=== PATIENT | female | born 1950 | race Caucasian/White ===

== ENCOUNTER → 2016-05-10 | Outpatient (CLI) | payer MEDICARE, OTHER ==
[~2016-05-10] MED LIST: ALBUTEROL0.63 MG/3 INH; ALPRAZOLAM0.5 MG PO; ASPIR 8181 MG PO; FERROUS SULFAT325 M2 PO; IMDUR ER TAB 3030 MG PO; LORTAB 5-325 M1 EACH PO; MAGNESIUM100 MG PO; NEURONTIN 300300 MG PO; NORCO 10-325 T1 EACH PO; PERCOCET 10-321 EACH PO; PLAVIX 75 MG TA75 MG PO; PROTONIX40 MG PO; PROVENTIL HFA 61 INH INH; RANEXA500 MG PO; SINGULAIR10 MG PO; TOPROL XL 25 MG25 MG PO; ZOCOR 40 MG TAB40 MG PO; ZYRTEC10 M3 PO
== END ==
LOC: RAD 14:33
DX: M25.551 Pain in right hip (principal); M54.5 Low back pain
CPT/HCPCS: 72110; 73502

== ENCOUNTER 2016-07-16 16:06 | Emergency (ER) | payer MEDICARE, OTHER ==
[2016-07-16 17:16] LABS: HEMOGLOBIN 11.3 gm/dl (12.3-15.3); RED BLOOD COUNT 3.67 M/UL (4.00-5.10); WHITE BLOOD COUNT 9.7 K/UL (4.5-11.0)
== END 2016-07-17 03:35 ==
LOC: ER1 16:06
PROVIDERS: Emergency Medicine
DX: G40.409 Other generalized epilepsy and epileptic syndromes, not intractable, without status epilepticus (principal); I10 Essential (primary) hypertension; Z86.73 Personal history of transient ischemic attack (TIA), and cerebral infarction without residual deficits; Z79.02 Long term (current) use of antithrombotics/antiplatelets; Z79.899 Other long term (current) drug therapy
CPT/HCPCS: 36415; 70450; 71010; 80053; 82550; 82553; 82962; 83874; 84484; 85025; 96374; 96375; 99291; J1953; J2060

== ENCOUNTER 2020-12-22 21:18 | Inpatient (IN) | payer MEDICARE, OTHER ==
[~2020-12-22] VITALS: Ht 167.6 cm; Wt 81.2 kg
[~2020-12-22 21:18] MED LIST changes: +AMLODIPINE BESYL5 MG PO; +ASPIRIN CHEWABL81 MG PO; +CEFUROXIME500 MG PO; +CETIRIZINE HCL10 MG PO; +CLONAZEPAM0.25 MG PO; +CRESTOR20 MG PO; +GABAPENTIN600 MG PO; +HYDROCHLOROTH12.5 MG PO; +HYDROXYZINE PAM25 MG PO; +ISOSORBIDE MON120 MG PO; +KEFLEX CAP 500500 MG PO; +KEPPRA 250 MG250 MG PO; +KEPPRA 500 MG500 MG PO; +KEPPRA500 MG PO; +LEVETIRACETAM500 MG PO; +LEVOFLOXACIN500 MG PO; +LORTAB 7.5-3251 EACH PO; +LOSARTAN POTASS25 MG PO; +MACROBID 100 M100 MG PO; +MAG OXIDE PO; +MAGOX 400400 MG PO; +MAPAP325 MG PO; +MEDROL4 MG PO; +METOPROLOL SUCC25 MG PO; +MOBIC7.5 MG PO; +MONTELUKAST SOD10 MG PO; +NITROSTAT0.4 MG SL; +NORCO 5-325 TA1 EACH PO; +NORCO 7.5-3251 EACH PO; +ONDANSETRON ODT4 MG PO; +OXYBUTYNIN CHLO10 MG PO; +PANTOPRAZOLE SO40 MG PO; +PERCOCET 5-3251 EACH PO; +PROMETHAZINE HC25 M1 PO; +RANEXA1000 MG PO; +SILVADENE CREAM20 GM TOP; +VENTOLIN HFA 66.7 GM INH; +VENTOLIN/PROVE0.5 ML INH; +VITAMIN B-121000 MC3 PO; +[UNRECOGNIZED DRUG - OTHER] TOP; +[UNRECOGNIZED DRUG - OTHER] TP
[2020-12-22 22:08] LABS: HEMOGLOBIN 9.4 gm/dl (12.3-15.3); RED BLOOD COUNT 3.33 M/UL (4.00-5.10); WHITE BLOOD COUNT 4.5 K/UL (4.5-11.0)
[2020-12-22 22:44] LABS: BUN/CREATININE RATIO 10 (0-10)
[2020-12-23] MEDS ORDERED: ISOSORBIDE MON120 MG PO (01:22)
[2020-12-23] MEDS ORDERED: COZAAR 25MG TAB25 MG PO (01:22)
[2020-12-23] MEDS ORDERED: HYDROCHLOROTH12.5 M1 PO (01:23)
[2020-12-24 07:22] LABS: HEMOGLOBIN 9.2 gm/dl (12.3-15.3); RED BLOOD COUNT 3.23 M/UL (4.00-5.10); WHITE BLOOD COUNT 4.2 K/UL (4.5-11.0)
[2020-12-24 07:59] LABS: BUN/CREATININE RATIO 9 (0-10)
--- NOTE | 2020-12-24 16:40 | NUR ---
1415 Patient c/o not being able to void. Bladder scanned patient, 925ml of urine noted. Dr Chris informed, order obtained to insert longo catheter. #16 Fr inserted as ordered. Clear yelow urine return noted.
[2020-12-25 07:58] LABS: HEMOGLOBIN 8.1 gm/dl (12.3-15.3); WHITE BLOOD COUNT 3.8 K/UL (4.5-11.0)
[2020-12-25 08:17] LABS: BUN/CREATININE RATIO 12 (0-10)
[2020-12-26 06:22] LABS: HEMOGLOBIN 8.9 gm/dl (12.3-15.3); RED BLOOD COUNT 3.16 M/UL (4.00-5.10); WHITE BLOOD COUNT 3.5 K/UL (4.5-11.0)
[2020-12-26 06:56] LABS: BUN/CREATININE RATIO 9 (0-10)
[2020-12-27 06:42] LABS: BUN/CREATININE RATIO 16 (0-10)
[2020-12-27 09:00] LABS: HEMOGLOBIN 8.5 gm/dl (12.3-15.3); RED BLOOD COUNT 2.99 M/UL (4.00-5.10)
[2020-12-27 09:21] LABS: WHITE BLOOD COUNT 4.4 K/UL (4.5-11.0)
[2020-12-28 06:45] LABS: HEMOGLOBIN 8.3 gm/dl (12.3-15.3); RED BLOOD COUNT 2.97 M/UL (4.00-5.10); WHITE BLOOD COUNT 3.5 K/UL (4.5-11.0)
[2020-12-28 07:26] LABS: BUN/CREATININE RATIO 13 (0-10)
[2020-12-29 04:44] LABS: BUN/CREATININE RATIO 11 (0-10)
[2021-01-03 07:52] LABS: HEMOGLOBIN 7.6 gm/dl (12.3-15.3); RED BLOOD COUNT 2.81 M/UL (4.00-5.10); WHITE BLOOD COUNT 5.6 K/UL (4.5-11.0)
[2021-01-03 08:21] LABS: BUN/CREATININE RATIO 16 (0-10)
[2021-01-03] MEDS ORDERED: FERROUS GLUCON324 M2 PO (11:42)
[2021-01-03] MEDS ORDERED: THERAGRAN M TAB1 EA PO (11:42)
[2021-01-03] MEDS ORDERED: TYLENOL 8 HOUR650 MG PO (11:45)
[2021-01-03] MEDS ORDERED: GABAPENTIN300 MG PO (11:45)
[2021-01-03] MEDS ORDERED: CRESTOR 10 MG T10 MG PO (12:03)
[2021-01-03 12:06] LABS: HEMOGLOBIN 7.5 gm/dl (12.3-15.3)
--- NOTE | 2021-01-03 13:38 | NUR ---
1320: RN SPEAKS WITH CHRISTELLE BARNES, D/T PATIENT BEING UPSET OVER BEING TRANSPORTED BY [facility]. PATIENT TOLD TECH THAT SHE WOULD PURPOSELY FALL, SO THAT SHE WOULD BE BROUGHT BACK TO THE HOSPITAL, STRONGLY ENCOURAGED PATIENT NOT TO ALLOW THAT TO HAPPEN. CHRISTELLE, CHRISTELLE DIRECTOR AND OT NOW IN ROOM SPEAKING WITH PATIENT REGARDING TRANSPORT.
== END 2021-01-03 16:32 | disposition swing bed (61) | DRG 56 ==
LOC: ER1 21:18 → M/S 12-23 00:40 → CDU 12-23 00:40 → M/S 12-23 03:21
PROVIDERS: Emergency Medicine; Internal Medicine; Internal Medicine Infectious Disease; ADMIT Internal Medicine
DX: I69.351 Hemiplegia and hemiparesis following cerebral infarction affecting right dominant side (principal); E43 Unspecified severe protein-calorie malnutrition; Z20.822 Contact with and (suspected) exposure to COVID-19; R64 Cachexia; R62.7 Adult failure to thrive; R53.81 Other malaise; D50.9 Iron deficiency anemia, unspecified; L89.322 Pressure ulcer of left buttock, stage 2; L89.312 Pressure ulcer of right buttock, stage 2; R29.6 Repeated falls; W18.30XA Fall on same level, unspecified, initial encounter; I25.10 Atherosclerotic heart disease of native coronary artery without angina pectoris; I11.9 Hypertensive heart disease without heart failure; G40.909 Epilepsy, unspecified, not intractable, without status epilepticus; R33.9 Retention of urine, unspecified; K22.70 Barrett's esophagus without dysplasia; E78.5 Hyperlipidemia, unspecified; F32.A Depression, unspecified; E86.0 Dehydration; F17.210 Nicotine dependence, cigarettes, uncomplicated; N30.90 Cystitis, unspecified without hematuria; F41.9 Anxiety disorder, unspecified; Z87.11 Personal history of peptic ulcer disease; Z98.51 Tubal ligation status; Z90.49 Acquired absence of other specified parts of digestive tract; Z82.49 Family history of ischemic heart disease and other diseases of the circulatory system; Z80.1 Family history of malignant neoplasm of trachea, bronchus and lung; Z87.81 Personal history of (healed) traumatic fracture; Z68.27 Body mass index [BMI] 27.0-27.9, adult
CPT/HCPCS: 36415; 70450; 70551; 71045; 72125; 80048; 80053; 80061; 80202; 80307; 81001; 82140; 82550; 82553; 82607; 82728; 82746; 83036; 83540; 83550; 83735; 83874; 84100; 84439; 84443; 84484; 84550; 85014; 85018; 85025; 85652; 86140; 87040; 87077; 87086; 94640; 94664; 94760; 96365; 96366; 96367; 97110; 97110-GP-CQ; 97116; 97116-GP-CQ; 97163; 97166; 97530; 97530-GP-CQ; 99285; A6212; G0378; J0696; J1756; J3370; J7030; J7050; U0002